=== PATIENT | female | born 1990 | race Two or more races ===

== ENCOUNTER → 2020-10-02 | Outpatient (CLI) | payer SELFPAY ==
[~2020-10-02] MED LIST: DOCU-109 PO; IBUP-1060 PO
== END ==
LOC: LAB 12:17
PROVIDERS: ATTEND Obstetrics & Gynecology
DX: Z01.812 Encounter for preprocedural laboratory examination (principal); Z20.822 Contact with and (suspected) exposure to COVID-19
CPT/HCPCS: U0003; U0005

== ENCOUNTER 2020-10-03 19:08 | Observation (INO) | payer SELFPAY ==
[2020-10-03 19:36] LABS: BILIRUBIN,URINE NEGATIVE (NEG); CLARITY,URINE CLEAR; COLOR,URINE YELLOW; NITRITE,URINE NEGATIVE (NEG); PROTEIN,URINE NEGATIVE (NEG-TRACE); UROBILINOGEN,URINE 0.2 mg/dL (0.2 mg/dL)
[2020-10-03 19:42] LABS: AMPHETAMINE/METHAMPHETAMINE NEG (NEG); BARBITURATES NEG (NEG); BENZODIAZEPINES NEG (NEG); CANNABINOIDS NEG (NEG); COCAINE NEG (NEG); METHADONE NEG (NEG); OPIATES NEG (NEG); PHENCYCLIDINE NEG (NEG)
[2020-10-03] MEDS ORDERED: IV RINGERS,LACTATED 1000ML 1,000 ML IV PRN (19:45)
[2020-10-03 19:47] LABS: BACTERIA,URINE 0 /HPF (0-FEW); RBC,URINE 0 /HPF (0-2)
== END 2020-10-03 21:22 | disposition home or self-care (01) ==
LOC: 3 SO LND 19:08
PROVIDERS: ADMIT Obstetrics & Gynecology; ATTEND Obstetrics & Gynecology
DX: O26.893 Other specified pregnancy related conditions, third trimester (principal); R10.30 Lower abdominal pain, unspecified; O62.9 Abnormality of forces of labor, unspecified; Z3A.39 39 weeks gestation of pregnancy; Z79.899 Other long term (current) drug therapy
CPT/HCPCS: 59025; 80307; 81001; G0378; G0379

== ENCOUNTER 2020-10-05 05:23 | Inpatient (IN) | payer SELFPAY ==
[~2020-10-05] VITALS: Ht 152.4 cm; Wt 72.8 kg
[2020-10-05] MEDS ORDERED: LIDOCAINE 1% PF 30 ML VIAL. INJ PRN (05:30)
[2020-10-05] MEDS ORDERED: IV RINGERS,LACTATED 1000ML 1,000 ML IV SCH (05:30)
[2020-10-05] MEDS ORDERED: 0.9 % SODIUM CHLORIDE 10 ML DISP.SYRIN. IV PRN ×2 (05:30→13:30)
[2020-10-05] MEDS ORDERED: IBUPROFEN 400 MG TABLET. PO PRN (05:30)
[2020-10-05] MEDS ORDERED: TERBUTALINE 1 MG/ML VIAL. SQ PRN (05:30)
[2020-10-05] MEDS ORDERED: BUTORPHANOL 2 MG/ML VIAL. IVP PRN ×2 (05:30)
[2020-10-05] MEDS ORDERED: OXYTOCIN 30 UNIT/500 ML PREMIX 500 ML IV PRN ×3 (05:30→13:30)
[2020-10-05 05:57] LABS: BILIRUBIN,URINE NEGATIVE (NEG); CLARITY,URINE CLEAR; COLOR,URINE YELLOW; NITRITE,URINE NEGATIVE (NEG); PH,URINE 6.5 (<5.0-8.0); PROTEIN,URINE NEGATIVE (NEG-TRACE); UROBILINOGEN,URINE 0.2 mg/dL (0.2 mg/dL)
[2020-10-05 06:13] LABS: BACTERIA,URINE 0 /HPF (0-FEW); RBC,URINE 0 /HPF (0-2)
[2020-10-05 06:24] LABS: BASO # 0.1 x10^3/uL (0.0-0.2); BASO % 1 % (0-3); EOS # 0.1 x10^3/uL (0.0-0.7); EOS % 1 % (0-3); HEMATOCRIT 46.2 % (36.0-47.0); HEMOGLOBIN 15.7 g/dL (12.0-15.5); LYMPH # 1.9 x10^3/uL (1.0-4.8); LYMPH % 18 % (24-48); MEAN CORPUSCULAR HEMOGLOBIN 30 pg (25-35); MEAN CORPUSCULAR HGB CONC 34 g/dL (31-37); MEAN CORPUSCULAR VOLUME 87 fL (79-100); MONO # 0.7 x10^3/uL (0.0-1.1); MONO % 6 % (0-9); NEUT # 7.8 x10^3/uL (1.8-7.7); NEUT % 75 % (31-73); PLATELET COUNT 222 x10^3/uL (140-400); RED BLOOD COUNT 5.28 x10^6/uL (3.50-5.40); RED CELL DISTRIBUTION WIDTH 13.9 % (11.5-14.5); WHITE BLOOD COUNT 10.5 x10^3/uL (4.0-11.0)
--- NOTE | 2020-10-05 08:07 | PDOC1 ---
[facility] H&P Date of Admission: Date of Admission: October 05, 2020 at 05:23 History of Present Illness: EDC: 10/08/20 LMP: 01/02/20 30y @ 39.4 by L=19 presents with ctxs. Recently the pt has been experiencing pruritus of her hand and feet. She has had minimal pruritus of her abd. She has no other symptoms. PMH: Denies PSH: Denies Meds: PNV All: NKDA OBHx: TSVD x 1 SH: no tob, no EtOH FH: DM Medications: Meds: Current Medications Medications (Trade) Dose Ordered Sig/Terell Route PRN Reason Start Time Stop Time Status Last Admin Dose Admin Ringer's Solution 1,000 ml @ 125 mls/hr Q8H IV 10/05/20 05:30 10/05/20 06:52 Oxytocin 500 ml @ 0 mls/hr CONT PRN IV SEE I/O RECORD 10/05/20 05:30 10/05/20 06:54 Allergies: Coded Allergies: No Known Drug Allergies (Unverified , 10/03/20) Physical Exam: PE: GENERAL: No apparent distress. Alert and oriented. HEENT: Head normocephalic, atraumatic. NECK: Supple LUNGS: Clear to auscultation. HEART: RRR, S1, S2 present, pulses intact ABDOMEN: Soft, positive bowel sounds. EXTREMITIES: No cyanosis or edema. NEUROLOGIC: Normal speech, normal tone PSYCHIATRIC: Normal affect, normal mood. SKIN: No ulceration. FHT: 120s +acels/no decels/mLTV [place]: 9 min SVE: 06/29/-3 Labs: Laboratory Tests Test 10/05/20 05:25 10/05/20 05:45 Urine Collection Type Unknown Urine Color Yellow Urine Clarity Clear Urine pH 6.5 (<5.0-8.0) Urine Specific [place] <=1.005 (1.000-1.030) Urine Protein Negative mg/dL (NEG-TRACE) Urine Glucose (UA) Negative mg/dL (NEG) Urine Ketones (Stick) Negative mg/dL (NEG) Urine Blood Negative (NEG) Urine Nitrite Negative (NEG) Urine Bilirubin Negative (NEG) Urine Urobilinogen Dipstick 0.2 mg/dL (0.2 mg/dL) Urine Leukocyte Esterase Trace (NEG) Urine RBC 0 /HPF (0-2) Urine WBC 1-4 /HPF (0-4) Urine Squamous Epithelial Cells Mod /LPF Urine Bacteria 0 /HPF (0-FEW) Urine Mucus Slight /LPF White Blood Count 10.5 x10^3/uL (4.0-11.0) Red Blood Count 5.28 x10^6/uL (3.50-5.40) Hemoglobin 15.7 g/dL (12.0-15.5) H Hematocrit 46.2 % (36.0-47.0) Mean Corpuscular Volume 87 fL (79-100) Mean Corpuscular Hemoglobin 30 pg (25-35) Mean Corpuscular Hemoglobin Concent 34 g/dL (31-37) Red Cell Distribution Width 13.9 % (11.5-14.5) Platelet Count 222 x10^3/uL (140-400) Neutrophils (%) (Auto) 75 % (31-73) H Lymphocytes (%) (Auto) 18 % (24-48) L Monocytes (%) (Auto) 6 % (0-9) Eosinophils (%) (Auto) 1 % (0-3) Basophils (%) (Auto) 1 % (0-3) Neutrophils # (Auto) 7.8 x10^3/uL (1.8-7.7) H Lymphocytes # (Auto) 1.9 x10^3/uL (1.0-4.8) Monocytes # (Auto) 0.7 x10^3/uL (0.0-1.1) Eosinophils # (Auto) 0.1 x10^3/uL (0.0-0.7) Basophils # (Auto) 0.1 x10^3/uL (0.0-0.2) Laboratory Tests 10/05/20 05:45 Laboratory Tests 10/05/20 05:45 Assessment & Plan: A/P 30y @ 39.4 by L=19 1.) Indxn on Pit 2.) Flu vaccine given 04/01/20 3.) TDAP given 07/29/20 4.) Armen NI 5.) Fetus cat I FHT 6.) GBS neg VIDYA THORNTON MD October 05, 2020 08:07
[2020-10-05] MEDS ORDERED: MAGNESIUM HYDROXIDE 2,400 MG/30 ML ORAL.SUSP. PO PRN (13:30)
[2020-10-05] MEDS ORDERED: TDaP (Adacel) per PROTOCOL. MC PRN (13:30)
[2020-10-05] MEDS ORDERED: MMR per PROTOCOL. MC PRN (13:30)
[2020-10-05] MEDS ORDERED: ACETAMINOPHEN 325 MG TABLET. PO PRN (13:30)
[2020-10-05] MEDS ORDERED: SIMETHICONE 80 MG TAB.CHEW PO PRN (13:30)
[2020-10-05] MEDS ORDERED: MAG HYDROX/ALUMINUM HYD/SIMETH 30 ML ORAL.SUSP PO PRN (13:30)
[2020-10-05] MEDS ORDERED: PHENYLEPH/MINERAL OIL/PETROLAT RECTAL OINTMENT TUBE. RC PRN (13:30)
[2020-10-05] MEDS ORDERED: DOCUSATE SODIUM 100 MG CAPSULE. PO PRN (13:30)
[2020-10-05] MEDS ORDERED: HYDROCORTISONE 1% TOPICAL OINTMENT 30GM TUBE. TP PRN (13:30)
[2020-10-05] MEDS ORDERED: BENZOCAINE 20% TOPICAL AEROSOL SPRAY 57GM CAN. TP PRN (13:30)
[2020-10-05] MEDS ORDERED: diphenhydrAMINE HCL 25 MG CAPSULE PO PRN (13:30)
[2020-10-05] MEDS ORDERED: oxyCODONE/APAP 5/325 1 TAB TABLET PO PRN (13:30)
[2020-10-05] MEDS ORDERED: ZOLPIDEM 5 MG TABLET. PO PRN (13:30)
--- NOTE | 2020-10-05 13:33 | PDOC ---
VAGINAL DELIVERY DATE DATE: 10/05/20 TIME: 13:31 TIME Patient delivered a viable male over intact perineum at 1227. Wt 7 lb 2.8 oz. Apgars 8/9. Placenta delivered spontaneously, intact with 3VC. 2nd degree laceration left of midline repaired with 2'0 vicryl in nml fashion. Good hemostasis noted. 20 U of Pit given with IVF. EBL 200cc. WEIGHT Weight [ ] VIDYA THORNTON MD October 05, 2020 13:33
[2020-10-05 18:07] VITALS: BP 112/71
[2020-10-05 19:30] VITALS: BP 105/62
[2020-10-06 01:00] VITALS: BP_SYST 105; BP_SYST 115; BP_DIAS 69; BP_DIAS 72
[2020-10-06] MEDS: IBUPROFEN 400 MG TABLET. PO PRN ×3 (01:53→21:40)
[2020-10-06 07:30] VITALS: BP 118/68
[2020-10-06] MEDS: FERROUS SULFATE 325 MG TABLET. PO SCH ×2 (08:00→17:00)
[2020-10-06 08:17] LABS: HEMATOCRIT 42.5 % (36.0-47.0); HEMOGLOBIN 14.2 g/dL (12.0-15.5); RED BLOOD COUNT 4.8 x10^6/uL (3.50-5.40); WHITE BLOOD COUNT 13.7 x10^3/uL (4.0-11.0)
--- NOTE | 2020-10-06 09:18 | PDOC ---
PHARMACEUTICAL LABORATORY TECHNICIAN PROGRESS NOTE Date of Service: DATE: 10/06/20 TIME: 09:17 Subjective: Pt with good pain control. Delbret PO. Voiding. Minimal lochia Objective: Vital Signs: Vital Signs Date Time Temp Pulse Resp B/P (MAP) Pulse Ox O2 Delivery O2 Flow Rate FiO2 10/05/20 18:07 97.9 85 16 112/71 (85) 97 Room Air 97.9 Vital Signs Date Time Temp Pulse Resp B/P (MAP) Pulse Ox O2 Delivery O2 Flow Rate FiO2 10/06/20 07:30 98.0 78 16 118/68 (85) 97 98.0 78 10/06/20 01:00 Room Air Labs: Laboratory Tests Test 10/06/20 07:25 White Blood Count 13.7 x10^3/uL (4.0-11.0) H Red Blood Count 4.80 x10^6/uL (3.50-5.40) Hemoglobin 14.2 g/dL (12.0-15.5) Hematocrit 42.5 % (36.0-47.0) Mean Corpuscular Volume 89 fL (79-100) Mean Corpuscular Hemoglobin 30 pg (25-35) Mean Corpuscular Hemoglobin Concent 33 g/dL (31-37) Red Cell Distribution Width 14.0 % (11.5-14.5) Platelet Count 198 x10^3/uL (140-400) Laboratory Tests 10/06/20 07:25 Laboratory Tests 10/06/20 07:25 Physical Exam: GENERAL: No apparent distress. Alert and oriented. HEENT: Head normocephalic, atraumatic. NECK: Supple LUNGS: Clear to auscultation. HEART: RRR, S1, S2 present, pulses intact ABDOMEN: Soft, positive bowel sounds. EXTREMITIES: No cyanosis or edema. NEUROLOGIC: Normal speech, normal tone PSYCHIATRIC: Normal affect, normal mood. SKIN: No ulceration. FFNT below umb No C/C/E Assessment & Plan: A/P 30y PPD #1 s/p 1.) PP doing well 2.) Flu vaccine given 04/01/20 3.) TDAP given 07/29/20 4.) Armen NI 5.) Hgb 15.7 -> 14.2 6.) Cont PP VIDYA Bai MD October 06, 2020 09:18
[2020-10-06] MEDS: PRENATAL MULTIVITAMIN TABLET. PO SCH (09:48)
[2020-10-06 14:00] VITALS: BP 104/65
[2020-10-06 17:51] VITALS: BP 103/66
[2020-10-06 20:00] VITALS: BP 106/61
[2020-10-07 02:00] VITALS: BP 108/68
[2020-10-07] MEDS ORDERED: IBUP-1060 PO (07:55)
[2020-10-07] MEDS ORDERED: DOCU-109 PO (07:55)
[2020-10-07 08:00] VITALS: BP 115/71
--- NOTE | 2020-10-07 08:21 | PDOC ---
GROOMING SALON MANAGER PROGRESS NOTE Date of Service: DATE: 10/07/20 TIME: 08:20 Subjective: Pt with good pain control. Delbert PO. Voiding. Minimal lochia Objective: Vital Signs: Vital Signs Date Time Temp Pulse Resp B/P (MAP) Pulse Ox O2 Delivery O2 Flow Rate FiO2 10/06/20 07:30 98.0 78 16 118/68 (85) 97 98.0 78 10/07/20 02:00 Room Air Vital Signs Date Time Temp Pulse Resp B/P (MAP) Pulse Ox O2 Delivery O2 Flow Rate FiO2 10/07/20 02:00 97.6 75 16 108/68 (81) 99 Room Air 97.6 Physical Exam: GENERAL: No apparent distress. Alert and oriented. HEENT: Head normocephalic, atraumatic. NECK: Supple LUNGS: Clear to auscultation. HEART: RRR, S1, S2 present, pulses intact ABDOMEN: Soft, positive bowel sounds. EXTREMITIES: No cyanosis or edema. NEUROLOGIC: Normal speech, normal tone PSYCHIATRIC: Normal affect, normal mood. SKIN: No ulceration. FFNT below umb No C/C/E Assessment & Plan: A/P 30y PPD #2 s/p 1.) PP doing well 2.) Flu vaccine given 04/01/20 3.) TDAP given 07/29/20 4.) Armen NI 5.) Hgb 15.7 -> 14.2 6.) D/c home VIDYA THORNTON MD October 07, 2020 08:20
--- NOTE | 2020-10-07 08:51 | DS ---
DATE OF DISCHARGE: 10/07/2020 ADMISSION DIAGNOSES: 1. Intrauterine at 39 weeks and 4 days by LMP equal to a 19-week ultrasound. 2. Induction of labor. 3. Status post flu vaccine. 4. Status post Tdap. 5. Varicella nonimmune. 6. GBS negative. DISCHARGE DIAGNOSES: 1. Intrauterine at 39 weeks and 4 days by LMP equal to a 19-week ultrasound. 2. Induction of labor. 3. Status post flu vaccine. 4. Status post Tdap. 5. Varicella nonimmune. 6. GBS negative. PROCEDURE: Spontaneous vaginal delivery. BRIEF HOSPITAL COURSE: The patient is a 30-year-old 2, para 1-0-0-1, who presented to labor and delivery at 39 weeks and 4 days by LMP equal to 19-week ultrasound for induction of labor. The patient had had a few contractions prior to admission. The patient was started on Pitocin to begin her labor. The patient ultimately delivered by vaginal delivery. See delivery note for full detail. By day #2, the patient was meeting all discharge criteria and was subsequently discharged home. Of note, the patient's hemoglobin on admission was 15.7 and after delivery, was found to be 14.2. DISCHARGE INSTRUCTIONS: The patient was told not to lift anything greater than 20 pounds, have pelvic rest for 6 weeks, not to drive on narcotics. CALL IF: The patient was to call if she had fevers, chills, nausea, vomiting, abdominal pain, or any additional questions or concerns. FOLLOWUP APPOINTMENT: The patient was to follow up on 11/25/2020 at 9:20 a.m. for a visit. DISCHARGE MEDICATIONS: The patient was given a prescription for Motrin 800 mg, 30 pills and Colace 100 mg, 30 pills. NASEEM/CALDERON DR: Hilario TID: [id number]
[2020-10-07] MEDS: PRENATAL MULTIVITAMIN TABLET. PO SCH (09:25)
[2020-10-07] MEDS: IBUPROFEN 400 MG TABLET. PO PRN (09:26)
[2020-10-07 14:06] VITALS: BP 110/67
[2020-10-07 15:50] VITALS: BP 115/78
--- NOTE | 2020-10-07 16:47 | NUR ---
dismissed to home with home instructions given thru loan interviewer phone. and rx for colace and motrin given to pt. Dismissed amb to home with fob and baby in car seat
== END 2020-10-07 16:20 | disposition home or self-care (01) | DRG 807 ==
LOC: 3 SO LND 05:23
PROVIDERS: ADMIT Obstetrics & Gynecology; ATTEND Obstetrics & Gynecology
PROC: 10E0XZZ Delivery of Products of Conception, External Approach (ICD-10-PCS; principal; 2020-10-05)
PROC: 0KQM0ZZ Repair Perineum Muscle, Open Approach (ICD-10-PCS; 2020-10-05)
PROC: 3E033VJ Introduction of Other Hormone into Peripheral Vein, Percutaneous Approach (ICD-10-PCS; 2020-10-05)
DX: O70.1 Second degree perineal laceration during delivery (principal); Z37.0 Single live birth; Z3A.39 39 weeks gestation of pregnancy
CPT/HCPCS: 36415; 81001; 85025; 85027; 86592; 86850; 86900; 86901; 87086; J2590; J7120; G0378